=== PATIENT | female | born 1965 | race Hispanic/Latino ===

== ENCOUNTER 2022-01-11 17:35 | Emergency (ER) | payer OTHER ==
[~2022-01-11] VITALS: Ht 149.9 cm; Wt 104.3 kg
[2022-01-11] MEDS ORDERED: CEPH500B PO (18:22)
[2022-01-11 18:59] VITALS: BP 135/75
== END 2022-01-11 19:01 | disposition home or self-care (01) ==
LOC: EDH 17:35
DX: S61.211A Laceration without foreign body of left index finger without damage to nail, initial encounter (principal); E11.9 Type 2 diabetes mellitus without complications; I10 Essential (primary) hypertension; Z98.890 Other specified postprocedural states; X58.XXXA Exposure to other specified factors, initial encounter; Y93.89 Activity, other specified; Y92.89 Other specified places as the place of occurrence of the external cause; Y99.8 Other external cause status
CPT/HCPCS: 12001

== ENCOUNTER 2023-05-30 23:32 | Inpatient (IN) | payer OTHER ==
[~2023-05-30] VITALS: Ht 149.9 cm; Wt 108.7 kg
[~2023-05-30 23:32] MED LIST: CEPH500B PO
[2023-05-31 00:44] LABS: BASOPHILS % (AUTO) 0.2 % (0.0-5.0); EOSINOPHILS % (AUTO) 0.5 % (0.0-8.0); HEMATOCRIT 43.3 % (36-48); LYMPHOCYTES % (AUTO) 12.3 % (21.0-51.0); MEAN CORPUSCULAR HEMOGLOBIN 28.4 pg (27.0-33.0); MEAN CORPUSCULAR HGB CONC 31.6 g/dL (32.0-36.0); MEAN CORPUSCULAR VOLUME 89.6 fL (79-99); MONOCYTES % (AUTO) 8.7 % (3.0-13.0); NEUTROPHILS % (AUTO) 77.7 % (40.0-77.0); PLATELET COUNT (AUTO) 341 K/uL (130-400); RED BLOOD CELL COUNT(AUTO) 4.83 MIL/uL (4.00-5.50); RED CELL DISTRIBUTION WIDTH 13.5 % (11.0-15.5); WHITE BLOOD COUNT (AUTO) 15.8 K/uL (4.8-10.8)
[2023-05-31 00:49] LABS: CREATININE 0.7 mg/dL (0.5-1.5)
[2023-05-31 01:01] LABS: ALBUMIN 3.7 g/dL (3.5-5.0); TOTAL PROTEIN, SERUM 8.4 g/dL (6.0-8.3)
[2023-05-31] MEDS ORDERED: IOHEXOL 350 MG/ML 100ML INFUS..BTL IV ONE (02:13)
[2023-05-31 02:54] LABS: APPEARANCE,URINE CLEAR (CLEAR); BILIRUBIN,URINE NEGATIVE (NEGATIVE); COLOR,URINE LIGHT-YELLOW (YELLOW); GLUCOSE, URINE (UA) NEGATIVE (NEGATIVE); KETONES,URINE 20 mg/dL (NEGATIVE); LEUKOCYTE ESTERASE ,URINE 250 Leu/uL (NEGATIVE); NITRATE,URINE NEGATIVE (NEGATIVE); PROTEIN,URINE NEGATIVE (NEGATIVE); UROBILINOGEN,URINE 0.2 mg/dL (0.2-1.0)
[2023-05-31 03:20] LABS: MUCUS,URINE FEW LPF (None Seen); RBC,URINE 0-1 /HPF (0-1); SQUAMOUS EPITHELIAL CELL,UR FEW /HPF (0-2)
[2023-05-31] MEDS ORDERED: 0.9%NACL 1000ML 2,500 ML IV ONE (04:00)
[2023-05-31] MEDS ORDERED: ONDANSETRON 4MG INJ IV PRN (04:00)
[2023-05-31] MEDS ORDERED: ONDANSETRON 4MG INJ IVP ONE (04:00)
[2023-05-31] MEDS ORDERED: POTASSIUM CHLORIDE 20MEQ/100ML 100 ML IV PRN (04:00)
[2023-05-31] MEDS ORDERED: MORPHINE 4 MG SYG IVP ONE (04:00)
[2023-05-31] MEDS ORDERED: ACETAMINOPHEN 325 MG TAB PO PRN ×2 (04:00)
[2023-05-31] MEDS ORDERED: MAGNESIUM 2GM PREMIX 50ML 50 ML IV PRN (04:00)
[2023-05-31] MEDS ORDERED: MORPHINE 2 MG SYG IV PRN (04:00)
[2023-05-31] MEDS ORDERED: POTASSIUM CHLORIDE 10% ELIXIR 20 MEQ/15 ML UDCUP PO PRN (04:00)
[2023-05-31] MEDS ORDERED: MORPHINE 4 MG SYG IV PRN (04:00)
[2023-05-31] MEDS ORDERED: KCL 20 MEQ ERTAB PO PRN (04:00)
[2023-05-31] MEDS ORDERED: ZOSYN 3.375GM +NS 50ML IVPB ONE (04:00)
[2023-05-31 04:29] LABS: HEMOGLOBIN A1C 6.6 % (4.0-6.0)
[2023-05-31] MEDS: ZOSYN 3.375GM+NS 50ML 50 ML IVPB SCH ×3 (05:00→21:00)
[2023-05-31] MEDS ORDERED: ROSU10TA28 PO (05:10)
[2023-05-31] MEDS ORDERED: LOSA50TA64 PO (05:10)
[2023-05-31] MEDS ORDERED: METF-910 PO (05:10)
[2023-05-31] MEDS: LACTATED RINGERS 1000ML 1,000 ML IV SCH ×3 (05:35→22:32)
[2023-05-31] MEDS: INSULIN HUMULIN R 100 UNIT/ML 3ML SQ SCH ×4 (07:30→21:00)
[2023-05-31] MEDS: FAMOTIDINE 20MG TAB PO SCH ×2 (09:00→21:00)
[2023-05-31] MEDS: ENOXAPARIN SODIUM 40 MG/0.4 ML SYRINGE SQ SCH (09:00)
[2023-05-31 21:40] VITALS: BP 116/74; PULSE 80; RESP 20
[2023-05-31 22:20] VITALS: O2SAT 98
[2023-06-01] VITALS: BP 115/82; PULSE 78; RESP 20
[2023-06-01] MEDS: ZOSYN 3.375GM+NS 50ML 50 ML IVPB SCH (03:59)
[2023-06-01 04:00] VITALS: BP 97/63; PULSE 62; RESP 20
[2023-06-01] MEDS: LACTATED RINGERS 1000ML 1,000 ML IV SCH (05:27)
[2023-06-01] MEDS: INSULIN HUMULIN R 100 UNIT/ML 3ML SQ SCH ×2 (05:42→11:30)
[2023-06-01 05:48] LABS: BASOPHILS % (AUTO) 0.4 % (0.0-5.0); EOSINOPHILS % (AUTO) 1.8 % (0.0-8.0); HEMATOCRIT 35.9 % (36-48); LYMPHOCYTES % (AUTO) 29.9 % (21.0-51.0); MEAN CORPUSCULAR HEMOGLOBIN 28.5 pg (27.0-33.0); MEAN CORPUSCULAR HGB CONC 31.2 g/dL (32.0-36.0); MEAN CORPUSCULAR VOLUME 91.3 fL (79-99); MONOCYTES % (AUTO) 11.7 % (3.0-13.0); NEUTROPHILS % (AUTO) 55.8 % (40.0-77.0); PLATELET COUNT (AUTO) 251 K/uL (130-400); RED BLOOD CELL COUNT(AUTO) 3.93 MIL/uL (4.00-5.50); RED CELL DISTRIBUTION WIDTH 13.3 % (11.0-15.5); WHITE BLOOD COUNT (AUTO) 8.1 K/uL (4.8-10.8)
[2023-06-01 06:12] LABS: CREATININE 0.8 mg/dL (0.5-1.5); PHOSPHORUS 4.5 mg/dL (2.5-4.9); POTASSIUM 4.1 mmol/L (3.5-5.1)
[2023-06-01 07:40] VITALS: O2SAT 99
[2023-06-01 08:00] VITALS: BP 117/70; PULSE 68; RESP 18
[2023-06-01] MEDS: ENOXAPARIN SODIUM 40 MG/0.4 ML SYRINGE SQ SCH (09:43)
[2023-06-01] MEDS: FAMOTIDINE 20MG TAB PO SCH (09:43)
[2023-06-01] MEDS ORDERED: METR-172 PO (09:53)
[2023-06-01] MEDS ORDERED: CIPR750T6 PO (09:53)
[2023-06-01 12:00] VITALS: BP 129/82; PULSE 75; RESP 18
== END 2023-06-01 16:05 | disposition home or self-care (01) | DRG 392 ==
LOC: EDH 23:32 → EDHIP 23:33 → 3DH 05-31 21:40
PROVIDERS: ADMIT Internal Medicine; ATTEND Internal Medicine
DX: K57.32 Diverticulitis of large intestine without perforation or abscess without bleeding (principal); N39.0 Urinary tract infection, site not specified; E11.9 Type 2 diabetes mellitus without complications; I10 Essential (primary) hypertension; E78.00 Pure hypercholesterolemia, unspecified; Z82.49 Family history of ischemic heart disease and other diseases of the circulatory system; Z98.891 History of uterine scar from previous surgery
CPT/HCPCS: 36415; 71045; 74177; 80048; 80053; 81001; 82150; 82550; 82948; 83036; 83605; 83690; 83735; 83874; 84100; 84145; 84484; 85025; 87040; 87088; G0378; J1650; J2270; J2405; J2543; J7030; J7120; Q9967